=== PATIENT | male | born 1980 | race Caucasian/White ===

== ENCOUNTER → 2019-06-17 | Outpatient (CLI) | payer OTHER ==
[~2019-06-17] MED LIST: CEPH500 PO; CYCL10 PO; HYDACE5 PO; PROACE100; RXCYCL10 PO; RXHYDACE PO; TRIAOIA
== END | disposition home or self-care (01) ==
LOC: LAB EV 12:55 → LAB SHORT 12:55
DX: E87.1 Hypo-osmolality and hyponatremia (principal)
CPT/HCPCS: 83935